=== PATIENT | male | born 1985 | race Caucasian/White ===

== ENCOUNTER 2019-06-05 19:25 | Emergency (ER) | payer OTHER ==
[~2019-06-05] VITALS: Ht 179.1 cm; Wt 135.2 kg
--- NOTE | 2019-06-05 19:33 | NUR ---
PT TAKEN TO BED 4
[2019-06-05 19:36] VITALS: BP 121/79
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
--- NOTE | 2019-06-05 20:19 | NUR ---
Dr. Cordon examining patient.
[2019-06-05] MEDS ORDERED: IBUPROFEN 800 MG TAB PO ONE (20:25)
--- NOTE | 2019-06-05 20:29 | NUR ---
PT TAKEN TO CT
--- NOTE | 2019-06-05 20:40 | NUR ---
PT RETURN FROM CT
--- NOTE | 2019-06-05 21:06 | NUR ---
PT RESTING IN BED WITH EYE CLOSED. BED LOCKED AND IN LOW POSITION. VSS. WILL CONTINUE TO MONITOR.
[2019-06-05 21:25] VITALS: BP 121/79
--- NOTE | 2019-06-05 21:25 | NUR ---
Patient discharged with v/s stable. Written and verbal after care instructions given and explained. Patient alert, oriented and verbalized understanding of instructions. Ambulatory with to home. All questions addressed prior to discharge. ID band removed. Patient advised to follow up with PMD. Rx of ACETAMINOPHEN AND MOTRIN given. Patient educated on indication of medication including possible reaction and side effects. Opportunity to ask questions provided and answered.
== END 2019-06-05 21:25 | disposition home or self-care (01) ==
LOC: MED 19:25
DX: S16.1XXA Strain of muscle, fascia and tendon at neck level, initial encounter (principal); M25.512 Pain in left shoulder; V89.2XXA Person injured in unspecified motor-vehicle accident, traffic, initial encounter; Y93.89 Activity, other specified; Y92.89 Other specified places as the place of occurrence of the external cause; Y99.8 Other external cause status
CPT/HCPCS: 72125; 99284

== ENCOUNTER 2019-06-18 20:59 | Emergency (ER) | payer OTHER ==
[~2019-06-18] VITALS: Ht 175.3 cm; Wt 131.5 kg
[2019-06-18 21:22] VITALS: BP 117/82
[2019-06-18 23:50] VITALS: BP 117/82
== END 2019-06-18 23:50 | disposition home or self-care (01) ==
LOC: MED 20:59
DX: L73.8 Other specified follicular disorders (principal)
CPT/HCPCS: 99283